=== PATIENT | female | born 1985 | race Caucasian/White ===

== ENCOUNTER → 2016-02-25 | Outpatient (REF) | payer BC | END | disposition home or self-care (01) | LOC: M LAB REF 16:52 | PROVIDERS: ATTEND Specialist | DX: N87.0 Mild cervical dysplasia (principal) ==

== ENCOUNTER 2016-05-12 08:49 | Day surgery (SDC) | payer BC, OTHER ==
[~2016-05-12] VITALS: Ht 165.1 cm; Wt 88.5 kg
[~2016-05-12 08:49] MED LIST: TRINTAB PO
[2016-05-12] MEDS ORDERED: LR 1,000 ML IV SCH ×4 (09:00→12:30)
[2016-05-12 09:16] LABS: CONTROL LINE UCG INT CTR LINE PRESENT
[2016-05-12] MEDS ORDERED: BUPIVACAINE HCL 0.25% 30 ML VIAL As Ordered ONE (09:43)
[2016-05-12] MEDS ORDERED: METHYLENE BLUE 0.5% (5MG/ML) 10 ML AMP (PROVAYBLUE)(Q9968 PER 1MG) As Ordered ONE (09:44)
[2016-05-12] MEDS ORDERED: SCOPOLAMINE 1.5 MG TRANSDERMAL As Ordered ONE (09:45)
[2016-05-12 09:56] LABS: MEAN CORPUSCULAR HEMOGLOBIN 28.5 pg (27.0-33.0); MEAN CORPUSCULAR HGB CONC 33.6 g/dl (32.0-36.5); MEAN CORPUSCULAR VOLUME 84.7 fl (80.0-96.0); RED CELL DISTRIBUTION WIDTH 12.4 % (11.5-14.5); WHITE BLOOD COUNT 5.3 K/mm3 (4.0-10.0)
[2016-05-12] MEDS ORDERED: SCOPOLAMINE 1.5 MG TRANSDERMAL TOP ONE (10:00)
[2016-05-12] MEDS ORDERED: PROPOFOL 200 MG/20 ML VIAL As Ordered ONE (10:23)
[2016-05-12] MEDS ORDERED: ROCURONIUM BROMIDE 50 MG/5 ML VIAL As Ordered ONE ×2 (10:23→10:27)
[2016-05-12] MEDS ORDERED: MIDAZOLAM INJ 2 MG/2 ML VIAL (J2250) As Ordered ONE (10:23)
[2016-05-12] MEDS ORDERED: LIDOCAINE 2% INJ 100 MG/5 ML SDV (FOR ANES.) As Ordered ONE (10:23)
[2016-05-12] MEDS ORDERED: fentaNYL 250 MCG/5 ML INJECTION (J3010) As Ordered ONE (10:23)
[2016-05-12] MEDS ORDERED: dexameTHASONE 4 MG/ML 1ML VIAL (J1100) As Ordered ONE (10:23)
[2016-05-12] MEDS ORDERED: KETOROLAC 60 MG/2 ML VIAL (J1885) As Ordered ONE (10:39)
[2016-05-12] MEDS ORDERED: ONDANSETRON 4MG/2ML VIAL (J2405) As Ordered ONE (10:39)
[2016-05-12] MEDS ORDERED: GLYCOPYRROLATE INJ 0.2 MG/ML 2 ML VIAL As Ordered ONE (10:39)
[2016-05-12] MEDS ORDERED: NEOSTIGMINE 1MG/ML 5 ML SYRINGE (J2710) As Ordered ONE (10:39)
[2016-05-12] MEDS ORDERED: HYDROmorphone HCL 2 MG/ML 1ML VIAL (J1170) As Ordered ONE (10:40)
[2016-05-12] MEDS ORDERED: DESFLURANE 240 ML INHALANT As Ordered ONE (11:07)
[2016-05-12] MEDS ORDERED: OXYC1TAB23 PO (12:28)
[2016-05-12] MEDS ORDERED: PERCOCET 5MG/325MG TAB PO PRN ×3 (12:30)
[2016-05-12] MEDS ORDERED: HYDROmorphone HCL 1 MG/ML SYRINGE (J1170) IV PRN (12:30)
[2016-05-12] MEDS ORDERED: METOCLOPRAMIDE INJ 10MG/2ML VIAL (J2765) IV PRN (12:30)
[2016-05-12] MEDS ORDERED: fentaNYL 100 MCG/2 ML INJECTION (J3010) IV PRN (12:30)
[2016-05-12] MEDS ORDERED: ONDANSETRON 4MG/2ML VIAL (J2405) IV PRN ×2 (12:30→12:45)
[2016-05-12] MEDS ORDERED: KETOROLAC 30 MG/ML VIAL (J1885) IV PRN (12:45)
[2016-05-12] MEDS ORDERED: MORPHINE 4 MG/ML 1ML SYRINGE IV PRN (12:45)
[2016-05-12 13:00] VITALS: BP 128/78
[2016-05-12 13:25] VITALS: BP 113/68
[2016-05-12 14:25] VITALS: BP 108/73
[2016-05-12 15:25] VITALS: BP 116/74
--- NOTE | 2016-05-12 16:27 | RO ---
DATE OF PROCEDURE: 05/12/2016 PREPROCEDURE DIAGNOSIS: Menorrhagia. POSTPROCEDURE DIAGNOSIS: Menorrhagia, fibroids. PROCEDURE: Robotic-assisted laparoscopic hysterectomy, bilateral salpingectomy, cystoscopy. SURGEON: Dr. Kelechi Betts [employer] TECHNICIAN: Abby Coreas, Nurse Practitioner ANESTHESIA: General endotracheal. ESTIMATED BLOOD LOSS: 100 mL. FINDINGS: Multiple small fibroids and otherwise normal appearing uterus, fallopian tubes and ovaries. Normal upper abdomen. DESCRIPTION OF PROCEDURE: The patient was taken to the operating room where general endotracheal anesthesia was induced. She was prepped and draped in a sterile fashion in the dorsal lithotomy position. A Wilkes catheter was placed, the VCare uterine manipulator was placed. A periumbilical incision was made with a scalpel, Veress needle was placed through this incision while tenting up on the skin of the abdomen. Intraabdominal location of the Veress needle was assessed by the use of saline-filled syringe and pneumoperitoneum was created. The Veress needle was removed. An 11 mm trocar using [employer] was inserted through this incision. Three 8 mm suprapubic ports were placed under direct visualization. The patient was placed in Trendelenburg position. The [employer] surgical robot was docked. Monopolar Endo Opal and bipolar PK dissecting device were used to coagulate and incise broad ligament attached to the fallopian tube. The utero-ovarian and round ligament complexes were coagulated and incised. The anterior and posterior leaves of the broad ligament were , a bladder flap was created. The uterine vessels were coagulated and incised. A colpotomy incision was created at the level of the VCare cup with monopolar Endo Opal. This extended circumferentially 360 degrees. Specimen, including the uterus, cervix and both fallopian tubes were removed through the vagina. The vagina was closed with #0 V-Loc suture in a running fashion. The pelvis was irrigated. Cystoscopy was performed using a 70-degree cystoscope. Bilateral ureteral jets were identified. The patient received methylene blue dye intravenously prior to this procedure. Abby Coreas assisted throughout the case. Her role included assisting with entry into the abdomen, insertion of ports, docking of the surgical robot. She also manipulated the uterus throughout the procedure and was responsible for removal of the specimen through the vagina. She aided with closing and removal of laparoscopic ports and suturing incisions. Sponge, instrument and needle counts were correct. Edited 05/12/2016 [facility]
[2016-05-12 16:30] VITALS: BP 102/73
[2016-05-12 17:45] VITALS: BP 120/79
[2016-05-12] MEDS ORDERED: DOCUSATE SODIUM 100 MG CAP PO SCH (21:00)
== END 2016-05-12 18:40 | disposition home or self-care (01) ==
LOC: M SDC 08:49 → M PED 12:56 → M SDC 18:40
PROVIDERS: ATTEND Specialist
DX: N92.0 Excessive and frequent menstruation with regular cycle (principal); N72 Inflammatory disease of cervix uteri; D25.2 Subserosal leiomyoma of uterus; Z88.2 Allergy status to sulfonamides
CPT/HCPCS: 36415; 58571; 84703; 85027; 88309; J0690; J1100; J1170; J1885; J2250; J2405; J2710; J3010; Q9968

== ENCOUNTER → 2016-07-21 | Outpatient (REF) | payer BC, OTHER ==
[~2016-07-21] MED LIST changes: +OXYC1TAB23 PO
[2016-07-21 18:04] LABS: ANION GAP 7 MEQ/L (8-16); BLOOD UREA NITROGEN 16 MG/DL (7-18); CALCIUM LEVEL 8.4 MG/DL (8.5-10.1); CARBON DIOXIDE LEVEL 28 MEQ/L (21-32); CHLORIDE LEVEL 105 MEQ/L (98-107); CREATININE FOR GFR 0.84 MG/DL (0.55-1.02); FREE T4 0.81 NG/DL (0.76-1.46); GLOMERULAR FILTRATION RATE > 60.0 (>60); GLUCOSE, FASTING 76 MG/DL (70-105); POTASSIUM SERUM 3.7 MEQ/L (3.5-5.1); SODIUM LEVEL 140 MEQ/L (136-145)
== END ==
LOC: M LABDRAW1 17:13
PROVIDERS: ATTEND Physician Assistant
DX: F32.1 Major depressive disorder, single episode, moderate (principal)

== ENCOUNTER → 2017-01-09 | Outpatient (CLI) | payer BC, OTHER ==
[~2017-01-09] MED LIST changes: +BUPR150T3; -TRINTAB PO; +TRINTAB3 PO
[2017-01-09 13:34] LABS: BASO % 0.7 % (0.0-1.0); EOS # 0.2 10^3/uL (0.0-0.50); EOS % 3.7 % (0.0-3.0); IMMATURE GRANULOCYTE % 0.4 % (0-0); LYMPH # 1.7 10^3/uL (1.5-4.5); LYMPH % 31.7 % (24.0-44.0); MEAN CORPUSCULAR HEMOGLOBIN 28.1 pg (27.0-33.0); MEAN CORPUSCULAR HGB CONC 32.8 g/dl (32.0-36.5); MEAN CORPUSCULAR VOLUME 85.7 fl (80.0-96.0); MONO # 0.5 10^3/uL (0.0-0.8); MONO % 8.6 % (0.0-5.0); NEUTROPHILS % 54.9 % (36.0-66.0); PLATELET COUNT, AUTOMATED 292 10^3/uL (150-450); RED CELL DISTRIBUTION WIDTH 12.4 % (11.5-14.5); WHITE BLOOD COUNT 5.5 10^3/uL (4.0-10.0)
[2017-01-09 14:00] LABS: ALBUMIN/GLOBULIN RATIO 1.11 (1.00-1.93); ALKALINE PHOSPHATASE 72 U/L (45-117); ALT/SGPT 35 U/L (12-78); ANION GAP 9 MEQ/L (8-16); AST/SGOT 26 U/L (7-37); BILIRUBIN,TOTAL 0.5 MG/DL (0.2-1.0); BLOOD UREA NITROGEN 17 MG/DL (7-18); CALCIUM LEVEL 9.1 MG/DL (8.5-10.1); CARBON DIOXIDE LEVEL 29 MEQ/L (21-32); CHLORIDE LEVEL 102 MEQ/L (98-107); CREATININE FOR GFR 0.83 MG/DL (0.55-1.02); FREE T4 0.82 NG/DL (0.76-1.46); GLOMERULAR FILTRATION RATE > 60.0 (>60); GLUCOSE, FASTING 85 MG/DL (70-105); POTASSIUM SERUM 4.6 MEQ/L (3.5-5.1); SODIUM LEVEL 140 MEQ/L (136-145); TOTAL PROTEIN 7.6 GM/DL (6.4-8.2)
== END ==
LOC: M SMT 10:06
PROVIDERS: ATTEND Family Medicine
DX: Z13.29 Encounter for screening for other suspected endocrine disorder (principal); Z13.0 Encounter for screening for diseases of the blood and blood-forming organs and certain disorders involving the immune mechanism

== ENCOUNTER 2017-01-14 15:07 | Emergency (ER) | payer BC, OTHER ==
[~2017-01-14] VITALS: Ht 165.1 cm; Wt 92.9 kg
[2017-01-14 15:07] VITALS: BP 141/93
[~2017-01-14 15:07] MED LIST changes: -BUPR150T3
[2017-01-14] MEDS ORDERED: BUPR150T3 (15:13)
[2017-01-14] MEDS ORDERED: OXYMETAZOLINE NASAL SPRAY (AFRIN) ONE (15:15)
[2017-01-14] MEDS ORDERED: SILVER NITRATE APPLICATOR TOP ONE (15:30)
== END 2017-01-14 16:31 | disposition home or self-care (01) ==
LOC: M ED 15:07
DX: R04.0 Epistaxis (principal)

== ENCOUNTER → 2017-03-12 | Outpatient (REF) | payer OTHER ==
[2017-03-12 19:36] LABS: INFLUENZA A AMPLIFICATION POSITIVE (NEGATIVE); INFLUENZA B AMPLIFICATION NEGATIVE (NEGATIVE)
== END ==
LOC: M LAB REF 17:19
DX: R50.9 Fever, unspecified (principal)

== ENCOUNTER → 2017-09-27 | Outpatient (CLI) | payer BC, OTHER ==
[2017-09-28 09:58] LABS: RUBELLA IgG QUALITATIVE IMMUNE (IMMUNE)
[2017-09-29 08:06] LABS: HERPES ZOSTER, VARICELLA IgG 1304 index (Immune >165)
[2017-09-29 08:06] LABS: MUMPS VIRUS IgG ANTIBODY <9.0 AU/mL (Immune >10.9); RUBEOLA IgG ANTIBODY <25.0 AU/mL (Immune >29.9)
== END ==
LOC: M SMT 15:32
DX: Z01.84 Encounter for antibody response examination (principal)
CPT/HCPCS: 86762

== ENCOUNTER → 2017-11-01 | Outpatient (CLI) | payer BC, OTHER ==
[2017-11-02 12:01] LABS: HEPATITIS C VIRUS ABY INDEX 0.1 INDEX (<0.8)
[2017-11-02 12:01] LABS: HEPATITIS A ANTIBODY IGM NEGATIVE (NEGATIVE); HEPATITIS B CORE ANTIBODY IGM NEGATIVE (NEGATIVE); HEPATITIS B SURFACE ANTIGEN NEGATIVE (NEGATIVE); HIV 1&2 SCREEN CENTAUR NEGATIVE (NEGATIVE)
== END ==
LOC: M SMT 13:37
DX: Z11.3 Encounter for screening for infections with a predominantly sexual mode of transmission (principal)
CPT/HCPCS: 87340

== ENCOUNTER → 2017-11-01 | Outpatient (REF) | payer BC, OTHER ==
[2017-11-01 20:46] LABS: CHLAMYDIA DNA AMPLIFICATION NEGATIVE (NEGATIVE); GC DNA AMPLIFICATION NEGATIVE (NEGATIVE)
== END ==
LOC: M LAB REF 17:26
DX: Z11.3 Encounter for screening for infections with a predominantly sexual mode of transmission (principal)
CPT/HCPCS: 87591

== ENCOUNTER → 2018-07-12 | Outpatient (CLI) | payer OTHER, BC ==
[~2018-07-12] MED LIST changes: +BUPR150T3; +TRINTAB PO; -TRINTAB3 PO
[2018-07-12 14:26] LABS: BASO % 0.4 % (0.0-1.0); EOS # 0.1 10^3/uL (0.0-0.50); EOS % 0.7 % (0.0-3.0); HEMATOCRIT 42.6 % (36.0-47.0); LYMPH # 1.4 10^3/uL (1.5-4.5); LYMPH % 16.4 % (24.0-44.0); MEAN CORPUSCULAR HGB CONC 32.9 g/dl (32.0-36.5); MEAN CORPUSCULAR VOLUME 88.2 fl (80.0-96.0); MONO % 12.3 % (0.0-5.0); NEUTROPHILS # 5.8 10^3/uL (1.8-7.7); NEUTROPHILS % 69.8 % (36.0-66.0); PLATELET COUNT, AUTOMATED 260 10^3/uL (150-450); RED BLOOD COUNT 4.83 10^6/uL (4.00-5.40); WHITE BLOOD COUNT 8.2 10^3/uL (4.0-10.0)
[2018-07-12 14:33] LABS: ALBUMIN 3.6 GM/DL (3.2-5.2); ALT/SGPT 23 U/L (12-78); BILIRUBIN,TOTAL 0.5 MG/DL (0.2-1.0); BLOOD UREA NITROGEN 11 MG/DL (7-18); C REACTIVE PROTEIN QUANTITATIV 8.65 MG/DL (0.00-0.30); CALCIUM LEVEL 8.6 MG/DL (8.5-10.1); CARBON DIOXIDE LEVEL 27 MEQ/L (21-32); CHLORIDE LEVEL 106 MEQ/L (98-107); CREATININE FOR GFR 0.71 MG/DL (0.55-1.30); GLOMERULAR FILTRATION RATE > 60.0 (>60); GLUCOSE, FASTING 92 MG/DL (70-100); POTASSIUM SERUM 4.4 MEQ/L (3.5-5.1); SODIUM LEVEL 139 MEQ/L (136-145); TOTAL PROTEIN 7.2 GM/DL (6.4-8.2)
[2018-07-12 15:06] LABS: ERYTHROCYTE SEDIMENTATION RATE 45 mm/hr (0-20)
[2018-07-13 17:10] LABS: Lyme Disease IgG/IgM Antibodie <0.91 ISR (0.00-0.90); Lyme Disease IgM Ab Quantitati <0.80 index (0.00-0.79)
== END ==
LOC: M SMT 09:27
PROVIDERS: ATTEND Physician Assistant
DX: B34.9 Viral infection, unspecified (principal)

== ENCOUNTER → 2018-07-26 | Outpatient (REF) | payer OTHER ==
[~2018-07-26] MED LIST changes: +BENZ200C70 PO; +GUAI1SOL2 PO; +MOXI1TAB PO; +PRED20TA PO
== END ==
LOC: M LAB REF 15:15
PROVIDERS: ATTEND Physician Assistant
DX: J02.9 Acute pharyngitis, unspecified (principal)

== ENCOUNTER 2018-07-28 15:06 | Emergency (ER) | payer OTHER ==
[~2018-07-28] VITALS: Ht 167.6 cm; Wt 90.9 kg
[~2018-07-28 15:06] MED LIST changes: -BENZ200C70 PO; -GUAI1SOL2 PO; -MOXI1TAB PO; -PRED20TA PO
[2018-07-28] MEDS ORDERED: PRED20TA PO (16:09)
[2018-07-28] MEDS ORDERED: MOXI1TAB PO (16:09)
[2018-07-28] MEDS ORDERED: BENZ200C70 PO (16:09)
[2018-07-28] MEDS ORDERED: GUAI1SOL2 PO (16:09)
[2018-07-28] MEDS ORDERED: predniSONE 20 MG TAB PO ONE (16:15)
[2018-07-28] MEDS ORDERED: MOXIFLOXACIN 400 MG TAB PO ONE (16:15)
[2018-07-28 16:25] LABS: HEMATOCRIT 41.2 % (36.0-47.0); HEMOGLOBIN 13.5 g/dl (12.0-15.5); MEAN CORPUSCULAR HEMOGLOBIN 28.2 pg (27.0-33.0); MEAN CORPUSCULAR HGB CONC 32.8 g/dl (32.0-36.5); MEAN CORPUSCULAR VOLUME 86.2 fl (80.0-96.0); PLATELET COUNT, AUTOMATED 278 10^3/uL (150-450); RED BLOOD COUNT 4.78 10^6/uL (4.00-5.40); WHITE BLOOD COUNT 8.4 10^3/uL (4.0-10.0)
[2018-07-28 16:35] LABS: PROTHROMBIN TIME 13.3 SECONDS (12.1-14.4)
[2018-07-28 16:36] LABS: PARTIAL THROMBOPLASTIN TIME 30.3 SECONDS (25.4-37.6)
[2018-07-28 16:47] LABS: ALT/SGPT 23 U/L (12-78); BILIRUBIN,TOTAL 0.5 MG/DL (0.2-1.0); BLOOD UREA NITROGEN 8 MG/DL (7-18); C REACTIVE PROTEIN QUANTITATIV 1.54 MG/DL (0.00-0.30); CALCIUM LEVEL 8.9 MG/DL (8.5-10.1); CARBON DIOXIDE LEVEL 29 MEQ/L (21-32); CHLORIDE LEVEL 103 MEQ/L (98-107); CREATININE FOR GFR 0.87 MG/DL (0.55-1.30); GLOMERULAR FILTRATION RATE > 60.0 (>60); GLUCOSE, FASTING 83 MG/DL (70-100); POTASSIUM SERUM 3.6 MEQ/L (3.5-5.1); RHEUMATOID FACTOR QUANT < 10.0 IU/ML (<15.0); SODIUM LEVEL 138 MEQ/L (136-145); TOTAL PROTEIN 7.3 GM/DL (6.4-8.2)
[2018-07-28 16:50] VITALS: BP 132/87
[2018-07-28 19:34] LABS: ERYTHROCYTE SEDIMENTATION RATE 23 mm/hr (0-20)
--- NOTE | 2018-07-29 07:45 | REP ---
CHEST, TWO VIEWS: There is no evidence of acute infiltrate. No pleural effusion is seen. The heart is normal in size. The mediastinal silhouette is unremarkable. The visualized osseous structures are intact. IMPRESSION: No acute pulmonary disease. Electronically Signed by Hong Savage MD 07/29/2018 08:38 A
[2018-07-31 00:06] LABS: ANTINUCLEAR ANTIBODIES DIRECT Negative (Negative); CYCLIC CITRULLINATED PEPTIDE 4 units (0-19)
== END 2018-07-28 16:55 | disposition home or self-care (01) ==
LOC: M ED 15:06
DX: J20.9 Acute bronchitis, unspecified (principal); Z88.2 Allergy status to sulfonamides

== ENCOUNTER → 2019-05-15 | Outpatient (CLI) | payer OTHER ==
[~2019-05-15] MED LIST changes: +BENZ200C70 PO; +GUAI1SOL2 PO; +MOXI1TAB PO; +PRED20TA PO
[2019-05-15 07:43] LABS: BASO % 0.6 % (0.0-1.0); EOS # 0.2 10^3/uL (0.0-0.5); EOS % 2.4 % (0.0-3.0); HEMATOCRIT 42.8 % (36.0-47.0); HEMOGLOBIN 14.4 g/dl (12.0-15.5); LYMPH # 1.9 10^3/uL (1.5-5.0); LYMPH % 29.5 % (24.0-44.0); MEAN CORPUSCULAR HGB CONC 33.6 g/dl (32.0-36.5); MEAN CORPUSCULAR VOLUME 86.1 fl (80.0-96.0); MONO # 0.5 10^3/uL (0.0-0.8); MONO % 7.4 % (0.0-5.0); NEUTROPHILS # 3.8 10^3/uL (1.5-8.5); NEUTROPHILS % 59.8 % (36.0-66.0); PLATELET COUNT, AUTOMATED 298 10^3/uL (150-450); RED BLOOD COUNT 4.97 10^6/uL (4.00-5.40); WHITE BLOOD COUNT 6.3 10^3/uL (4.0-10.0)
[2019-05-15 07:51] LABS: COLLAGEN EPINEPHRINE 99 SECONDS (74-162)
[2019-05-15 08:07] LABS: ALT/SGPT 21 U/L (12-78); BILIRUBIN,TOTAL 0.3 MG/DL (0.2-1.0); BLOOD UREA NITROGEN 12 MG/DL (7-18); CALCIUM LEVEL 8.9 MG/DL (8.5-10.1); CARBON DIOXIDE LEVEL 28 MEQ/L (21-32); CHLORIDE LEVEL 105 MEQ/L (98-107); CREATININE FOR GFR 0.87 MG/DL (0.55-1.30); GLOMERULAR FILTRATION RATE > 60.0 (>60); GLUCOSE, FASTING 102 MG/DL (70-100); SODIUM LEVEL 138 MEQ/L (136-145); TOTAL PROTEIN 7.3 GM/DL (6.4-8.2)
== END ==
LOC: M LAB 06:56
PROVIDERS: ATTEND Family Medicine
DX: R23.3 Spontaneous ecchymoses (principal)

== ENCOUNTER → 2020-02-05 | Outpatient (REF) ==
[2020-02-05 16:22] LABS: RSV AMPLIFICATION NEGATIVE (NEGATIVE)
== END ==
LOC: M EMP 14:45
PROVIDERS: ATTEND Pediatrics
DX: Z20.828 Contact with and (suspected) exposure to other viral communicable diseases (principal)

== ENCOUNTER → 2020-08-18 | Outpatient (REF) | payer BC ==
[~2020-08-18] MED LIST changes: +BUPR150T12; -BUPR150T3
[2020-08-18 20:31] LABS: GC DNA AMPLIFICATION NEGATIVE (NEGATIVE)
== END ==
LOC: M LAB REF 17:15
PROVIDERS: ATTEND Family Medicine
DX: Z11.3 Encounter for screening for infections with a predominantly sexual mode of transmission (principal)

== ENCOUNTER → 2020-10-14 | Outpatient (REF) | payer BC, OTHER ==
[2020-10-14 20:53] LABS: GC DNA AMPLIFICATION NEGATIVE (NEGATIVE)
== END ==
LOC: M LAB REF 17:36
PROVIDERS: ATTEND Family Medicine
DX: N76.0 Acute vaginitis (principal)

== ENCOUNTER → 2021-04-22 | Outpatient (REF) | LOC: M EMP 13:52 | PROVIDERS: ATTEND Family Medicine | DX: Z11.52 Encounter for screening for COVID-19 (principal) ==

== ENCOUNTER → 2021-05-09 | Outpatient (REF) | LOC: M LABSMTC 10:10 | PROVIDERS: ATTEND Family Medicine | DX: Z11.52 Encounter for screening for COVID-19 (principal) ==

== ENCOUNTER → 2021-07-07 | Outpatient (REF) | payer BC ==
[2021-07-07 19:36] LABS: GC DNA AMPLIFICATION NEGATIVE (NEGATIVE)
== END ==
LOC: M LAB REF 17:03
PROVIDERS: ATTEND Nurse Practitioner Adult Health
DX: N89.8 Other specified noninflammatory disorders of vagina (principal)

== ENCOUNTER → 2022-10-25 | Outpatient (REF) ==
[~2022-10-25] MED LIST changes: +AMPH1CAP15
== END ==
LOC: M EMP 15:25
PROVIDERS: ATTEND Family Medicine
DX: Z11.52 Encounter for screening for COVID-19 (principal)

== ENCOUNTER 2022-11-14 08:55 | Emergency (ER) | payer BC ==
[~2022-11-14] VITALS: Ht 167.6 cm; Wt 89.7 kg
[2022-11-14] MEDS ORDERED: WELLTAB38 PO (09:10)
[2022-11-14] MEDS ORDERED: AMOX875T2 PO (09:11)
[2022-11-14] MEDS ORDERED: dexAMETHasone 20MG/5ML VIAL IV ONE (12:50)
[2022-11-14] MEDS ORDERED: KETOROLAC 30 MG/ML 1ML VIAL IV ONE (12:50)
[2022-11-14] MEDS ORDERED: NS 1,000 ML IV ONE (12:50)
[2022-11-14 13:23] LABS: BASO % 0.3 % (0.0-1.0); EOS # 0.1 10^3/uL (0.0-0.5); EOS % 0.6 % (0.0-3.0); HEMATOCRIT 42.6 % (36.0-47.0); HEMOGLOBIN 13.9 g/dl (12.0-15.5); LYMPH % 11.4 % (24.0-44.0); MEAN CORPUSCULAR HEMOGLOBIN 28.5 pg (27.0-33.0); MEAN CORPUSCULAR HGB CONC 32.6 g/dl (32.0-36.5); MEAN CORPUSCULAR VOLUME 87.5 fl (80.0-96.0); MONO # 0.8 10^3/uL (0.0-0.8); MONO % 9.4 % (2.0-8.0); NEUTROPHILS # 6.7 10^3/uL (1.5-8.5); NEUTROPHILS % 77.8 % (36.0-66.0); PLATELET COUNT, AUTOMATED 291 10^3/uL (150-450); RED BLOOD COUNT 4.87 10^6/uL (4.00-5.40); WHITE BLOOD COUNT 8.6 10^3/uL (4.0-10.0)
[2022-11-14] MEDS ORDERED: ISOVUE-370 76% 100ML VIAL As Ordered ONE (13:32)
[2022-11-14 13:34] LABS: ERYTHROCYTE SEDIMENTATION RATE 31 mm/hr (0-20)
[2022-11-14 13:56] LABS: RSV AMPLIFICATION NEGATIVE (NEGATIVE)
[2022-11-14 14:02] LABS: MONO REFLEX EBV COMP NEGATIVE (NEGATIVE)
[2022-11-14] MEDS ORDERED: AMPICILLIN SOD/SULBACTAM SOD 3 GM in D5W MINI-BAG PLUS 100 ML IV ONE (15:15)
[2022-11-14 15:26] LABS: BLOOD UREA NITROGEN 11 MG/DL (9-23); CALCIUM LEVEL 8.6 MG/DL (8.5-10.1); CARBON DIOXIDE LEVEL 26 MMOL/L (20-31); CHLORIDE LEVEL 107 MMOL/L (98-107); CREATININE FOR GFR 0.81 MG/DL (0.55-1.30); GLOMERULAR FILTRATION RATE > 60.0 (>60); GLUCOSE, FASTING 87 MG/DL (60-100); POTASSIUM SERUM 3.8 MMOL/L (3.5-5.1); SODIUM LEVEL 141 MMOL/L (136-145)
[2022-11-14 17:04] VITALS: BP 118/65; TEMP 98.8; O2SAT 98
[2022-11-16 14:08] LABS: EBV AB TO NUCLEAR ANTIGEN 46.3 U/mL (0.0-17.9); EBV VIRAL CAPSID AG IgG >600.0 U/mL (0.0-17.9); EBV VIRAL CAPSID AG IgM <36.0 U/mL (0.0-35.9)
== END 2022-11-14 17:07 | disposition home or self-care (01) ==
LOC: M ED 08:55
DX: J03.90 Acute tonsillitis, unspecified (principal); Z88.2 Allergy status to sulfonamides
CPT/HCPCS: 36415; 70491; 80048; 83605; 85025; 85652; 86140; 86308; 86664; 86665; 87040; 87631; 87880; 96361; 96365; 96375; 99284; J0295; J1100; J1885; Q9967

== ENCOUNTER → 2022-11-20 | Outpatient (REF) | payer BC ==
[~2022-11-20] MED LIST changes: +AMOX875T2 PO; +WELLTAB38 PO
== END ==
LOC: M LAB REF 17:02
PROVIDERS: ATTEND Otolaryngology
DX: J35.01 Chronic tonsillitis (principal)

== ENCOUNTER → 2022-12-14 | Outpatient (CLI) | payer BC ==
[2022-12-14 16:11] LABS: BASO # 0.1 10^3/uL (0.0-0.2); BASO % 0.8 % (0.0-1.0); EOS # 0.3 10^3/uL (0.0-0.5); EOS % 4.5 % (0.0-3.0); HEMATOCRIT 41.6 % (36.0-47.0); HEMOGLOBIN 13.5 g/dl (12.0-15.5); LYMPH % 32.3 % (24.0-44.0); MEAN CORPUSCULAR HEMOGLOBIN 28.4 pg (27.0-33.0); MEAN CORPUSCULAR HGB CONC 32.5 g/dl (32.0-36.5); MEAN CORPUSCULAR VOLUME 87.4 fl (80.0-96.0); MONO # 0.5 10^3/uL (0.0-0.8); MONO % 8.5 % (2.0-8.0); NEUTROPHILS # 3.2 10^3/uL (1.5-8.5); NEUTROPHILS % 53.7 % (36.0-66.0); PLATELET COUNT, AUTOMATED 336 10^3/uL (150-450); RED BLOOD COUNT 4.76 10^6/uL (4.00-5.40)
[2022-12-14 16:28] LABS: ALKALINE PHOSPHATASE 60 U/L (46-116); ALT/SGPT 20 U/L (7.0-40); AST/SGOT 14 U/L (<34); BILIRUBIN,TOTAL 0.5 MG/DL (0.3-1.2); BLOOD UREA NITROGEN 16 MG/DL (9-23); CALCIUM LEVEL 9.4 MG/DL (8.5-10.1); CARBON DIOXIDE LEVEL 29 MMOL/L (20-31); CHLORIDE LEVEL 103 MMOL/L (98-107); CREATININE FOR GFR 0.78 MG/DL (0.55-1.30); GLOMERULAR FILTRATION RATE > 60.0 (>60); GLUCOSE, FASTING 93 MG/DL (60-100); POTASSIUM SERUM 4.5 MMOL/L (3.5-5.1); SODIUM LEVEL 139 MMOL/L (136-145)
[2022-12-14 17:03] LABS: HIV 1&2 SCREEN NEGATIVE (NEGATIVE)
[2022-12-14 17:11] LABS: HEPATITIS C VIRUS ABY INDEX 0.05 INDEX (<0.8)
[2022-12-14 17:12] LABS: HEPATITIS B CORE ANTIBODY IGM NEGATIVE (NEGATIVE)
[2022-12-14 17:23] LABS: GC DNA AMPLIFICATION NEGATIVE (NEGATIVE)
[2022-12-16 05:07] LABS: HSV TYPE II IgG SPECIFIC <0.91 index (0.00-0.90)
== END ==
LOC: M PLALAB 10:24
PROVIDERS: ATTEND Physician Assistant
DX: Z11.3 Encounter for screening for infections with a predominantly sexual mode of transmission (principal)

== ENCOUNTER → 2022-12-16 | Outpatient (REF) | payer BC | LOC: M LAB REF 18:44 | PROVIDERS: ATTEND Physician Assistant Medical | DX: J02.9 Acute pharyngitis, unspecified (principal) ==

== ENCOUNTER 2023-01-29 09:13 | Emergency (ER) | payer BC ==
[~2023-01-29] VITALS: Ht 167.6 cm; Wt 91.7 kg
[2023-01-29] MEDS ORDERED: KETOROLAC 60MG 2ML VIAL IM ONE (10:25)
[2023-01-29] MEDS ORDERED: dexAMETHasone 20MG/5ML VIAL IM ONE (10:25)
[2023-01-29 10:34] LABS: RSV AMPLIFICATION NEGATIVE (NEGATIVE)
[2023-01-29 11:30] LABS: BASO % 0.4 % (0.0-1.0); EOS % 0.1 % (0.0-3.0); HEMATOCRIT 41.7 % (36.0-47.0); HEMOGLOBIN 13.9 g/dl (12.0-15.5); LYMPH # 0.7 10^3/uL (1.5-5.0); LYMPH % 6.5 % (24.0-44.0); MEAN CORPUSCULAR HEMOGLOBIN 28.7 pg (27.0-33.0); MEAN CORPUSCULAR HGB CONC 33.3 g/dl (32.0-36.5); MONO # 0.9 10^3/uL (0.0-0.8); MONO % 7.5 % (2.0-8.0); NEUTROPHILS # 9.6 10^3/uL (1.5-8.5); NEUTROPHILS % 85.1 % (36.0-66.0); PLATELET COUNT, AUTOMATED 275 10^3/uL (150-450); RED BLOOD COUNT 4.85 10^6/uL (4.00-5.40); WHITE BLOOD COUNT 11.3 10^3/uL (4.0-10.0)
[2023-01-29 11:43] LABS: ERYTHROCYTE SEDIMENTATION RATE 33 mm/hr (0-20)
[2023-01-29] MEDS ORDERED: cefTRIAXone SOD 1 GM in D5W MINI-BAG PLUS 50 ML IV ONE (11:55)
[2023-01-29] MEDS ORDERED: ISOVUE-370 76% 100ML VIAL As Ordered ONE (12:34)
[2023-01-29] MEDS ORDERED: PRED20TA PO (14:24)
[2023-01-29] MEDS ORDERED: AMOX875T2 PO (14:24)
[2023-01-29 14:36] VITALS: BP 132/84; TEMP 98.4; O2SAT 95
== END 2023-01-29 14:40 | disposition home or self-care (01) ==
LOC: M ED 09:13
DX: J03.90 Acute tonsillitis, unspecified (principal); F41.9 Anxiety disorder, unspecified; F32.A Depression, unspecified; Z79.899 Other long term (current) drug therapy; Z88.2 Allergy status to sulfonamides
CPT/HCPCS: 70491; 80047; 83605; 85025; 85652; 86140; 87486; 87581; 87631; 87633; 87798; 96372; 96374; 99284; J0696; J1100; J1885; Q9967

== ENCOUNTER → 2023-02-16 | Outpatient (CLI) | payer BC | LOC: M RAD 08:04 | PROVIDERS: ATTEND Physician Assistant | DX: M54.59 Other low back pain (principal) ==

== ENCOUNTER 2023-05-03 08:10 | Day surgery (SDC) | payer BC ==
[~2023-05-03] VITALS: Ht 167.6 cm; Wt 87.5 kg
[~2023-05-03 08:10] MED LIST changes: +AMPH1CAP16 PO; +TAMS1CAP17 PO; +THERTAB52 PO
[2023-05-03] MEDS ORDERED: LR 1,000 ML IV SCH ×3 (08:35→11:40)
[2023-05-03] MEDS ORDERED: propofoL 200 MG/20 ML VIAL As Ordered ONE (09:42)
[2023-05-03] MEDS ORDERED: SUGAMMADEX SODIUM 500 MG/5 ML VIAL (BRIDION) As Ordered ONE (09:44)
[2023-05-03] MEDS ORDERED: ROCURONIUM BROMIDE 50MG/5ML VIAL As Ordered ONE (09:44)
[2023-05-03] MEDS ORDERED: LIDOCAINE 2% 100MG/5ML SDV (FOR ANES.) As Ordered ONE (09:44)
[2023-05-03] MEDS ORDERED: ACETAMINOPHEN 1000MG 100ML IV BAG As Ordered ONE (09:45)
[2023-05-03] MEDS ORDERED: ONDANSETRON 4MG 2ML VIAL As Ordered ONE (09:46)
[2023-05-03] MEDS ORDERED: MIDAZOLAM INJ 2MG/2ML VIAL As Ordered ONE (09:47)
[2023-05-03] MEDS ORDERED: fentaNYL 100 MCG/2 ML INJECTION As Ordered ONE (09:47)
[2023-05-03] MEDS: LIDOCAINE W/EPINEPHRINE 1% 20ML VIAL As Ordered ONE (10:51)
[2023-05-03] MEDS: OXYMETAZOLINE 0.05% NASAL SPRAY (AFRIN) As Ordered ONE (10:51)
[2023-05-03] MEDS: LIDOCAINE 2% JELLY 6ML SYRINGE As Ordered ONE (10:53)
[2023-05-03] MEDS ORDERED: oxyCODONE 5MG TAB PO PRN (11:00)
[2023-05-03] MEDS ORDERED: fentaNYL 100 MCG/2 ML INJECTION IV PRN (11:00)
[2023-05-03] MEDS: HYDROcodone/APAP LIQUID 7.5-325MG 15ML UDC (LORTAB ELIXIR) PO PRN (11:47)
[2023-05-03] MEDS: ONDANSETRON 4MG 2ML VIAL IV PRN (12:05)
[2023-05-03] MEDS: HYDROMORPHONE HCL 0.5 MG/ 0.5 ML SYRINGE IV PRN (12:05)
[2023-05-03 12:30] VITALS: BP 133/87; TEMP 98.1; O2SAT 98
== END 2023-05-03 12:45 | disposition home or self-care (01) ==
LOC: M SDC 08:10
PROVIDERS: ATTEND Otolaryngology
DX: J35.03 Chronic tonsillitis and adenoiditis (principal); R04.0 Epistaxis; Z85.820 Personal history of malignant melanoma of skin; Z90.710 Acquired absence of both cervix and uterus; Z88.2 Allergy status to sulfonamides
CPT/HCPCS: 30903; 42821; 88302; J0131; J0665; J1100; J1170; J2250; J2405; J3010

== ENCOUNTER → 2023-05-31 | Outpatient (REF) | payer BC | LOC: M LAB REF 16:53 | PROVIDERS: ATTEND Physician Assistant | DX: J20.9 Acute bronchitis, unspecified (principal) ==

== ENCOUNTER → 2024-03-04 | Outpatient (CLI) | payer BC ==
[~2024-03-04] MED LIST changes: +AMPH1CAP4; +BLOOD TEST; +FISH1CAP26 FT; +PROBCAP14 PO; +TIRZ10PE3
== END ==
LOC: M RAD 10:15
PROVIDERS: ATTEND Physician Assistant
DX: I89.0 Lymphedema, not elsewhere classified (principal)

== ENCOUNTER 2024-06-19 20:31 | Emergency (ER) | payer BC ==
[~2024-06-19] VITALS: Ht 167.6 cm; Wt 72.7 kg
[2024-06-19] MEDS ORDERED: ISOVUE-370 76% 100ML VIAL As Ordered ONE (20:38)
[2024-06-19 20:54] LABS: BASO # 0.1 10^3/uL (0.0-0.2); BASO % 0.7 % (0.0-1.0); EOS # 0.2 10^3/uL (0.0-0.5); EOS % 2.2 % (0.0-3.0); HEMATOCRIT 38.1 % (36.0-47.0); HEMOGLOBIN 12.9 g/dl (12.0-15.5); LYMPH # 2.5 10^3/uL (1.5-5.0); LYMPH % 36.1 % (24.0-44.0); MEAN CORPUSCULAR HEMOGLOBIN 29.1 pg (27.0-33.0); MEAN CORPUSCULAR HGB CONC 33.9 g/dl (32.0-36.5); MEAN CORPUSCULAR VOLUME 85.8 fl (80.0-96.0); MONO # 0.5 10^3/uL (0.0-0.8); MONO % 7.8 % (2.0-8.0); NEUTROPHILS # 3.6 10^3/uL (1.5-8.5); NEUTROPHILS % 53.1 % (36.0-66.0); PLATELET COUNT, AUTOMATED 352 10^3/uL (150-450); RED BLOOD COUNT 4.44 10^6/uL (4.00-5.40); WHITE BLOOD COUNT 6.8 10^3/uL (4.0-10.0)
[2024-06-19] MEDS ORDERED: ONDANSETRON 4MG 2ML VIAL As Ordered ONE (20:58)
[2024-06-19 21:06] LABS: INR 0.97; PROTHROMBIN TIME 13.2 SECONDS (12.5-14.5)
[2024-06-19] MEDS: ONDANSETRON 4MG 2ML VIAL IV ONE (21:14)
[2024-06-19 22:45] VITALS: BP 131/90; TEMP 97.6
[2024-06-19 23:15] VITALS: O2SAT 100
[2024-06-19] MEDS ORDERED: MECL-136 PO (23:41)
== END 2024-06-19 23:51 | disposition home or self-care (01) ==
LOC: M ED 20:31
DX: R55 Syncope and collapse (principal); R42 Dizziness and giddiness; R11.0 Nausea; Z88.2 Allergy status to sulfonamides; Z79.810 Long term (current) use of selective estrogen receptor modulators (SERMs); Z79.899 Other long term (current) drug therapy
CPT/HCPCS: 70450; 70496; 70498; 71045; 80047; 85025; 85610; 85730; 93005; 93041; 94760; 96374; 99285; J2405; Q9967

== ENCOUNTER → 2024-09-08 | Outpatient (REF) ==
[~2024-09-08] MED LIST changes: +MECL-136 PO
== END ==
LOC: M EMP 13:21
PROVIDERS: ATTEND Family Medicine
DX: Z11.52 Encounter for screening for COVID-19 (principal)